=== PATIENT | male | born 1965 ===

== ENCOUNTER 2017-08-12 23:24 | Emergency (ER) | payer SELFPAY ==
[2017-08-13] MEDS ORDERED: Sodium Chloride 0.9% 1,000 ML IV STA (00:11)
--- NOTE | 2017-08-13 00:14 | ED PDOC ---
HPI: Back Time Seen by Provider: 08/12/17 23:48 Chief Complaint (Nursing): Back Pain Chief Complaint (Provider): left back pain History Per: Patient History/Exam Limitations: no limitations Onset/Duration Of Symptoms: Days (2 weeks) Current Symptoms Are (Timing): Still Present Additional Complaint(s): 51 y/o male presents with lower back pain x 2 weeks. Patient states pain now traveling to left side with associated redness to tip of penis today and burning to area with urination. Denies fever, nausea/vomiting, chest pain, shortness of breath, palpitations, changes in bowel movements, penile pain/ discharge, testicular pain/swelling. 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) Denies: Hypercholesterolemia - Surgical History Surgical History: No Surg Hx - Family History Family History: States: Unknown Family Hx, Diabetes (sibling), Hypertension ( sibling) - Home Medications Home Medications: Ambulatory Orders Medication Instructions Recorded Ibuprofen [Motrin] 600 mg PO Q8 PRN #6 tab 01/02/15 Docusate [Colace] 100 mg PO BID PRN #20 cap 01/06/15 Cyclobenzaprine [Flexeril] 5 mg PO Q8 PRN #15 tab 04/14/16 Ibuprofen [Motrin Tab] 600 mg PO Q8 PRN #60 tab 04/14/16 Clotrimazole 1% Cream [Lotrimin 1%] 1 applic TP BID #1 tube 08/13/17 metFORMIN [glucOPHAGE] 500 mg PO BID #30 tab 08/13/17 - Allergies Allergies/Adverse Reactions: Allergies Allergy/AdvReac Type Severity Reaction Status Date / Time No Known Allergies Allergy Verified 08/12/17 23:32 Review of Systems ROS Statement: Except As Marked, All Systems Reviewed And Found Negative Gastrointestinal: Positive for: Abdominal Pain Genitourinary Male: Positive for: Dysuria Musculoskeletal: Positive for: Back Pain Physical Exam - Reviewed Nursing Documentation Reviewed: Yes Vital Signs Reviewed: Yes - Physical Exam Appears: Positive for: Well, Non-toxic, No Acute Distress Head Exam: Positive for: ATRAUMATIC, NORMAL INSPECTION, NORMOCEPHALIC Skin: Positive for: Normal Color Eye Exam: Positive for: Normal appearance ENT: Positive for: Normal ENT Inspection Cardiovascular/Chest: Positive for: Regular Rate, Rhythm Respiratory: Positive for: Normal Breath Sounds Gastrointestinal/Abdominal: Positive for: Bowel Sounds, Soft, Tenderness (llq, left flank) Male Genital Exam: Positive for: other (patient uncircumsized; upon retraction of foreskin mild erythema noted to glans; no discharge, lesions noted. 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 Negative for: epididymal tenderness, scrotum tenderness (R ), scrotum tenderness (L), testicular tenderness (R), testicular tenderness (L) , urethral discharge Back: Positive for: Normal Inspection, Muscle Spasm (lspine paravertebral tenderness). Negative for: L CVA Tenderness, R CVA Tenderness, Vertebral Tenderness, Decreased ROM Extremity: Positive for: Normal ROM Neurologic/Psych: Positive for: Alert, Oriented - Laboratory Results Result Diagrams: 08/13/17 00:20 08/13/17 00:20 - ECG O2 Sat by Pulse Oximetry: 99 - Progress ED Course And Treament: labs, urine, CT renal protocol, IV fluids, IV toradol EXAM: CT Abdomen and Pelvis Without Intravenous Contrast CLINICAL HISTORY: 51 years old, male; Pain; Abdominal pain; Flank; Left; Additional info: Left flank pain TECHNIQUE: Axial computed tomography images of the abdomen and pelvis without intravenous contrast. All CT scans at this facility use one or more dose reduction techniques, viz.: automated exposure control; ma/kV adjustment per patient size (including targeted exams where dose is matched to indication; i.e. head); or iterative reconstruction technique. Coronal and sagittal reformatted images were created and reviewed. COMPARISON: CT - ABD PELVIS IV CONTRAST ONLY 2015-01-06 23:10 FINDINGS: Limitations: Lack of intravenous contrast. Lung bases: No acute findings. ABDOMEN: Liver: Unremarkable. Gallbladder and bile ducts: No calcified stones. No ductal dilation. Pancreas: Unremarkable. No ductal dilation. Spleen: No splenomegaly. Adrenals: No mass. Kidneys and ureters: No renal calculi. Left extrarenal pelvis. No hydronephrosis. Stomach and bowel: No definite mural thickening. No obstruction. PELVIS: Appendix: Normal caliber. No inflammation. Bladder: Borderline anterior bladder wall thickening, 4-5 mm. No stones. Reproductive: Unremarkable as visualized. ABDOMEN and PELVIS: Intraperitoneal space: No significant fluid collection. No free air. Bones/joints: No acute fracture. Soft tissues: Tiny umbilical hernia containing fat. Vasculature: Minimal atherosclerotic disease of right common iliac artery. No aneurysm. Lymph nodes: No pathologically enlarged lymph nodes. IMPRESSION: 1. No definite CT evidence of urolithiasis. 2. Possible mild bladder wall thickening. Clinical correlation is needed. 3. Incidental/non-acute findings are described above. Patient/ educated on findings, discharged with rx Clotrimazole, MEtformin Advised follow up [facility] Diet/lifestyle modification Tylenol/Ibuprofen PRN pain Return precautions given Disposition - Clinical Impression Clinical Impression: Back pain, Hyperglycemia, Balanitis - Patient ED Disposition Is Patient to be Admitted: No Counseled Patient/Family Regarding: Studies Performed, Diagnosis, Need For Followup, Rx Given - Disposition Referrals: [facility] [Outside] Disposition: Routine/Home Disposition Time: 02:36 Condition: IMPROVED Prescriptions: Clotrimazole 1% Cream [Lotrimin 1%] 1 applic TP BID #1 tube metFORMIN [glucOPHAGE] 500 mg PO BID #30 tab Instructions: Hyperglycemia, Adult, Balanitis, Low Back Pain in Adults Forms: [employer] (Turkmen) Print Language: THAI
[2017-08-13 00:40] LABS: BASO # 0.1 K/uL (0.0-0.2); BASO % 1.2 % (0.0-2.0); EOS # 0.4 K/uL (0.0-0.7); EOS % 4.8 % (0.0-4.0); HEMOGLOBIN 15.8 g/dL (12.0-18.0); LYMPH # 3.6 K/uL (1.0-4.3); MEAN CELL VOLUME 91.6 fl (80.0-94.0); MEAN CORPUSCULAR HEMOGLOBIN 31.5 pg (27.0-31.0); MEAN CORPUSCULAR HGB CONC 34.4 g/dL (33.0-37.0); MEAN PLATELET VOLUME 8.9 fl (7.2-11.7); MONO # 0.7 K/uL (0.0-0.8); NEUT # 3.8 K/uL (1.8-7.0); NRBC % 0.2 % (0.0-0.0); RBC 5.01 Mil/uL (4.40-5.90); RED CELL DISTRIBUTION WIDTH 12.8 % (11.5-14.5); WHITE BLOOD COUNT 8.7 K/uL (4.8-10.8)
[2017-08-13 00:48] LABS: ALB/GLOB RATIO 1.1 (1.0-2.1); ALBUMIN 4.2 g/dL (3.5-5.0); CALCIUM 9.7 mg/dL (8.4-10.2); GFR AFRICAN-AMERICAN > 60; GFR NON-AFRICAN AMERICAN > 60
[2017-08-13 00:49] LABS: ALT/SGPT 72 U/L (21-72); AST/SGOT 53 U/L (17-59); BLOOD UREA NITROGEN 16 mg/dl (9-20)
[2017-08-13 01:32] LABS: SQUAMOUS EPITHIAL < 1 /hpf (0-5); URINE BILIRUBIN NEGATIVE (NEGATIVE); URINE BLOOD NEGATIVE (NEGATIVE); URINE CLARITY CLEAR (Clear); URINE COLOR YELLOW (YELLOW); URINE GLUCOSE (UA) >=500 mg/dL (Normal); URINE LEUKOCYTE ESTERASE NEG Leu/uL (Negative); URINE PROTEIN NEGATIVE (NEGATIVE); URINE UROBILINOGEN 0.2-1.0 mg/dL (0.2-1.0)
--- NOTE | 2017-08-13 02:25 | CT ---
EXAM: CT Abdomen and Pelvis Without Intravenous Contrast CLINICAL HISTORY: 51 years old, male; Pain; Abdominal pain; Flank; Left; Additional info: Left flank pain TECHNIQUE: Axial computed tomography images of the abdomen and pelvis without intravenous contrast. All CT scans at this facility use one or more dose reduction techniques, viz.: automated exposure control; ma/kV adjustment per patient size (including targeted exams where dose is matched to indication; i.e. head); or iterative reconstruction technique. Coronal and sagittal reformatted images were created and reviewed. COMPARISON: CT - ABD PELVIS IV CONTRAST ONLY 2015-01-06 23:10 FINDINGS: Limitations: Lack of intravenous contrast. Lung bases: No acute findings. ABDOMEN: Liver: Unremarkable. Gallbladder and bile ducts: No calcified stones. No ductal dilation. Pancreas: Unremarkable. No ductal dilation. Spleen: No splenomegaly. Adrenals: No mass. Kidneys and ureters: No renal calculi. Left extrarenal pelvis. No hydronephrosis. Stomach and bowel: No definite mural thickening. No obstruction. PELVIS: Appendix: Normal caliber. No inflammation. Bladder: Borderline anterior bladder wall thickening, 4-5 mm. No stones. Reproductive: Unremarkable as visualized. ABDOMEN and PELVIS: Intraperitoneal space: No significant fluid collection. No free air. Bones/joints: No acute fracture. Soft tissues: Tiny umbilical hernia containing fat. Vasculature: Minimal atherosclerotic disease of right common iliac artery. No aneurysm. Lymph nodes: No pathologically enlarged lymph nodes. IMPRESSION: 1. No definite CT evidence of urolithiasis. 2. Possible mild bladder wall thickening. Clinical correlation is needed. 3. Incidental/non-acute findings are described above.
[2017-08-13 02:56] VITALS: BP 122/87; PULSE 90; RESP 18; TEMP 97.5; O2SAT 98
== END 2017-08-13 03:00 | disposition home or self-care (01) ==
LOC: H.ER 23:24
DX: N48.1 Balanitis (principal); E11.65 Type 2 diabetes mellitus with hyperglycemia; M54.9 Dorsalgia, unspecified; Z79.84 Long term (current) use of oral hypoglycemic drugs
CPT/HCPCS: 74176; 80053; 81003; 85025; 87086; 96360; 99283; J1885; J7030

== ENCOUNTER 2018-03-21 22:43 | Emergency (ER) | payer SELFPAY ==
[2018-03-21 22:48] VITALS: BP 130/76; PULSE 72; RESP 18; TEMP 97.7; O2SAT 99
--- NOTE | 2018-03-21 23:34 | ED PDOC ---
HPI: Abdomen Time Seen by Provider: 03/21/18 22:53 Chief Complaint (Nursing): Abdominal Pain Chief Complaint (Provider): Abdominal Pain History Per: Patient History/Exam Limitations: no limitations Onset/Duration Of Symptoms: Days (x7) Location Of Pain/Discomfort: LLQ Associated Symptoms: denies: Nausea, Vomiting, Diarrhea, Constipation Additional Complaint(s): 52 y/o male with history of epilepsy and diabetes presents to ER for evaluation of left lower quadrant abdominal pain for over a week. Patient denies any associated nausea, vomiting, diarrhea or constipation. He states he hasn't followed up with his PMD in a year. 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) Denies: Hypercholesterolemia - Surgical History Surgical History: No Surg Hx - Family History Family History: States: Unknown Family Hx, Diabetes (sibling), Hypertension (sibling) - Social History Current smoker - smoking cessation education provided: No Alcohol: None Drugs: Denies - Home Medications Home Medications: Ambulatory Orders Medication Instructions Recorded Ibuprofen [Motrin] 600 mg PO Q8 PRN #6 tab 01/02/15 Docusate [Colace] 100 mg PO BID PRN #20 cap 01/06/15 Cyclobenzaprine [Flexeril] 5 mg PO Q8 PRN #15 tab 04/14/16 Ibuprofen [Motrin Tab] 600 mg PO Q8 PRN #60 tab 04/14/16 Clotrimazole 1% Cream [Lotrimin 1%] 1 applic TP BID #1 tube 08/13/17 metFORMIN [glucOPHAGE] 500 mg PO BID #30 tab 08/13/17 Dicyclomine [Bentyl] 20 mg PO BID #30 tab 03/22/18 Ibuprofen [Motrin Tab] 600 mg PO Q6 #30 tab 03/22/18 - Allergies Allergies/Adverse Reactions: Allergies Allergy/AdvReac Type Severity Reaction Status Date / Time No Known Allergies Allergy Verified 06/06/18 23:32 Review of Systems ROS Statement: Except As Marked, All Systems Reviewed And Found Negative Gastrointestinal: Positive for: Abdominal Pain (LLQ). Negative for: Nausea, Vomiting, Diarrhea, Constipation Physical Exam - Reviewed Nursing Documentation Reviewed: Yes Vital Signs Reviewed: Yes - Physical Exam Appears: Positive for: Non-toxic, No Acute Distress Head Exam: Positive for: ATRAUMATIC, NORMOCEPHALIC Skin: Positive for: Normal Color, Warm, Dry Neck: Positive for: Normal, Painless ROM, Supple Cardiovascular/Chest: Positive for: Regular Rate, Rhythm. Negative for: Murmur Respiratory: Positive for: Normal Breath Sounds. Negative for: Wheezing Gastrointestinal/Abdominal: Positive for: Soft, Tenderness (LLQ). Negative for: Guarding, Rebound Back: Positive for: Normal Inspection. Negative for: L CVA Tenderness, R CVA Tenderness Extremity: Positive for: Normal ROM. Negative for: Pedal Edema, Deformity Neurologic/Psych: Positive for: Alert, Oriented (x3) - Laboratory Results Result Diagrams: 03/21/18 23:15 03/21/18 23:15 - ECG O2 Sat by Pulse Oximetry: 99 (RA) Pulse Ox Interpretation: Normal Medical Decision Making Medical Decision Makin A/P: 52 y/o male presenting with LLQ pain --Well appearing with stable vitals --Differential includes but not limited to Diverticulitis vs. colitis vs. enteritis vs. gas --CT Abdomen/Pelvis --CMP --CBC --Toradol 30 mg IVP --Blood culture --Urinalysis 0037 CT SCAN OF THE ABDOMEN AND PELVIS WITH CONTRAST. CLINICAL HISTORY: Abdominal pain. TECHNIQUE: Multiple axial and coronal CT images were obtained through the abdomen and pelvis after administration of intravenous contrast material. COMPARISON: 09/12/2017. COMMENTS: Uncomplicated colonic diverticulosis. 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 Mild diffuse thickening of the wall of the bladder. The liver is of uniform attenuation without mass or defect. There is no intra or extrahepatic biliary ductal dilatation. The spleen is normal. The gallbladder is within normal limits. The pancreas is of normal contour and attenuation characteristics. There is no evidence of adrenal mass. Both kidneys demonstrate prompt and equal nephrograms. The kidneys are normal in size, shape and configuration. There is no evidence of renal or ureteral mass. No renal or ureteral calculi are identified. There is no hydroureter or hydronephrosis. No evidence for appendicitis. There is no bowel wall thickening. No evidence for small or large bowel obstruction. There is no evidence of abdominal ascites or lymphadenopathy. There is no evidence of intrinsic or extrinsic bladder mass. There is no pelvic ascites or lymphadenopathy. Images of the lung bases show no evidence of pleural or parenchymal mass. There are no pleural effusions. The bony structures are free of lytic or blastic lesions. IMPRESSION: Uncomplicated colonic diverticulosis. 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 Mild diffuse thickening of the wall of the bladder. Correlation with urinalysis is suggested. 1AM Patient is feeling much better Advised of results, diet modification suggested Strongly advised patient to followup with PMD for followup Very well appearing upon discharge Scribe Attestation: Documented by Leanne Gale, acting as a scribe for Liam Guevara MD. Provider Scribe Attestation: All medical record entries made by the Scribe were at my direction and personally dictated by me. I have reviewed the chart and agree that the record accurately reflects my personal performance of the history, physical exam, medical decision making, and the department course for this patient. I have also personally directed, reviewed, and agree with the discharge instructions and disposition. Disposition - Clinical Impression Clinical Impression: Diverticulosis - Disposition Referrals: [facility] [Outside] Disposition: Routine/Home Disposition Time: 01:00 Condition: GOOD Prescriptions: Dicyclomine [Bentyl] 20 mg PO BID #30 tab Ibuprofen [Motrin Tab] 600 mg PO Q6 #30 tab Instructions: Diverticulosis Forms: [employer] (Maltese) Print Language: OMANI
[2018-03-21 23:36] LABS: BASO # 0.1 K/uL (0.0-0.2); EOS # 0.8 K/uL (0.0-0.7); EOS % 7.6 % (0.0-4.0); HEMOGLOBIN 15.3 g/dL (12.0-18.0); LYMPH # 4.2 K/uL (1.0-4.3); LYMPH % 40.5 % (20.0-40.0); MEAN CELL VOLUME 91.8 fl (80.0-94.0); MEAN CORPUSCULAR HEMOGLOBIN 31.2 pg (27.0-31.0); MEAN PLATELET VOLUME 8.8 fl (7.2-11.7); MONO # 0.8 K/uL (0.0-0.8); NEUT # 4.5 K/uL (1.8-7.0); NEUT % 42.9 % (50.0-75.0); NRBC % 0.1 % (0.0-0.0); RBC 4.92 Mil/uL (4.40-5.90); RED CELL DISTRIBUTION WIDTH 12.5 % (11.5-14.5); WHITE BLOOD COUNT 10.4 K/uL (4.8-10.8)
[2018-03-21 23:48] LABS: ALB/GLOB RATIO 1.2 (1.0-2.1); ALBUMIN 4.5 g/dL (3.5-5.0); ALT/SGPT 82 U/L (21-72); AST/SGOT 56 U/L (17-59); BLOOD UREA NITROGEN 14 mg/dl (9-20); CALCIUM 9.6 mg/dL (8.4-10.2); GFR NON-AFRICAN AMERICAN > 60
[2018-03-21] MEDS ORDERED: Sodium Chloride 0.9% 50 ML IV ONE (23:49)
[2018-03-21] MEDS ORDERED: Iohexol 300 100 ML IJ ONE (23:49)
[2018-03-22 00:22] LABS: URINE BILIRUBIN NEGATIVE (NEGATIVE); URINE BLOOD SMALL (NEGATIVE); URINE CLARITY CLEAR (Clear); URINE COLOR COLORLESS (YELLOW); URINE GLUCOSE (UA) NEG (NEGATIVE); URINE LEUKOCYTE ESTERASE NEG Leu/uL (Negative); URINE PROTEIN NEGATIVE (NEGATIVE); URINE UROBILINOGEN 0.2-1.0 mg/dL (0.2-1.0)
--- NOTE | 2018-03-22 10:57 | CT ---
Date of service: 03/21/2018 PROCEDURE: CT Abdomen and Pelvis with contrast HISTORY: LLQ pain COMPARISON: Abdomen pelvis CT without contrast 08/13/2017. TECHNIQUE: Following the intravenous administration of iodinated contrast material, a CT examination of the abdomen and pelvis performed from the domes of the diaphragms to the symphysis pubis with reformatted datasets provided in axial, sagittal and coronal planes. Oral contrast was not administered as per referring physician request. Coronal and sagittal reformats were generated. Contrast dose: Omnipaque 300, 90 cc Radiation dose: Total exam DLP = 454.93 mGy-cm. This CT exam was performed using one or more of the following dose reduction techniques: Automated exposure control, adjustment of the mA and/or kV according to patient size, and/or use of iterative reconstruction technique. FINDINGS: LOWER THORAX: Trace subsegmental atelectasis right lower lobe base. Prior ground-glass opacity appears diminished or resolved bilaterally. LIVER: Diminished attenuation throughout the liver is compatible hepatic steatosis. No focal mass or intrahepatic biliary dilatation is identified. Liver appears upper limits normal size. GALLBLADDER AND BILE DUCTS: Unremarkable. PANCREAS: Unremarkable. No gross lesion or ductal dilatation. SPLEEN: Unremarkable. ADRENALS: Unremarkable. No mass. KIDNEYS AND URETERS: Unremarkable. No hydronephrosis. No solid mass. VASCULATURE: Unremarkable. No aortic aneurysm. No aortic atherosclerotic calcification or mural plaque present. BOWEL: No bowel obstruction, pericolic or perienteric reactive changes or definite colonic diverticular appreciated. [id number] scattered retained fecal material seen throughout the large bowel. Fluid distends the gastric viscus mildly with stomach otherwise unremarkable appearing. APPENDIX: Normal appearing appendix once again. PERITONEUM: Unremarkable. No free fluid. No free air. LYMPH NODES: Unremarkable. No enlarged lymph nodes. BLADDER: Unremarkable. REPRODUCTIVE: Unremarkable. BONES: No acute fracture. OTHER FINDINGS: None. IMPRESSION: 1. No definite acute abdominal or pelvic findings as discussed above. 2. Attic steatosis without intrahepatic biliary dilatation or mass appreciable. 3. The remainder the examination appears unremarkable though limited due lack of oral contrast. Preliminary report provided by Mary Lou, 03/22/2018 12:37 a.m..
== END 2018-03-22 01:43 | disposition home or self-care (01) ==
LOC: H.ER 22:43
DX: K57.30 Diverticulosis of large intestine without perforation or abscess without bleeding (principal); E11.9 Type 2 diabetes mellitus without complications; Z79.84 Long term (current) use of oral hypoglycemic drugs; Z79.899 Other long term (current) drug therapy
CPT/HCPCS: 74177; 80053; 81003; 85025; 87040; 96374; 99284; J1885; Q9967